=== PATIENT | male | born 1935 | race Caucasian/White ===

== ENCOUNTER 2018-11-09 09:19 | Inpatient (IN) ==
--- NOTE | 2018-10-14 08:35 | History & Physical Report ---
Date of Service October 14, 2018 Date of Surgery: 11-09-18 Assessment & Plan (1) Tricompartment osteoarthritis of right knee: Risks and benefits of procedure discussed in detail today, patient would like to proceed with a right total knee replacement at [facility] as scheduled. will obtain medical clearance prior to surgery as well as obtain PATs at [facility]. Will place on ASA 81mg po bid x 1 month post op, f/u 2 weeks post op for routine post-operative care and x-ray, sooner if having any problems. will make arrangements for HHPT at the time of discharge. At this point in time, has failed conservative measures and would like to proceed with surgical intervention. History of Present Illness Chief Complaint: right knee pain Primary Care Provider: Bonilla Bartlett Mr Argueta is an 83 year old male who complains of right knee pain, presents for pre-op evaluation prior to a right total knee replacement at [facility] by Dr Tao. April myrick presents with pain and stiffness on the right side. He states that the symptoms have been chronic non-traumatic and has gradually worsened over the past couple of years. The symptoms occur constantly. Currently the patient states that the symptoms are moderate and is described as aching and sharp. at this point, his pain is affecting his ADLs including walking, standing and using stairs, he has tried previous visco with minimal relief, has also had cortisone injection with mild relief. at this point has failed conservative measures and would like to proceed with right total knee replacement. Allergies Allergy/AdvReac Type Severity Reaction Status Date / Time CUT GRASS Allergy Unknown HEAD Uncoded 10/07/18 10:20 CONGESTION Home Medications Home Medications Medication Instructions Recorded Confirmed Type Allergy Relief 1 dose PO HS PRN 10/07/18 10/07/18 History acetaminophen [Arthritis Pain 650 mg PO UD PRN 10/07/18 10/07/18 History Reliever] amlodipine-olmesartan 1 tab PO DAILY 10/07/18 10/07/18 History amoxicillin 2,000 mg PO UD PRN 10/07/18 10/07/18 History atorvastatin 10 mg PO DAILY 10/07/18 10/07/18 History cholecalciferol (vitamin D3) 2,000 unit PO DAILY 10/07/18 10/07/18 History [Vitamin D3] docusate sodium [Stool Softener] 100 mg PO UD PRN 10/07/18 10/07/18 History melatonin 3 mg PO HS PRN 10/07/18 10/07/18 History pantoprazole 40 mg PO QAM 10/07/18 10/07/18 History tramadol 50 mg PO UD PRN 10/07/18 10/07/18 History Past Med/Surg History Medical History Acid reflux "ACID STOMACH" Hyperlipidemia Hypertension Surgical History History of bilateral cataract extraction History of cholecystectomy History of colonoscopy History of total right hip replacement Family History Unknown Hypertension Social History Preferred Language: Maori Communication Ability: Effective Product Design Specialist Required: No Beliefs That Will Affect Care: None Current Living Situation: Spouse Other Information That Helps Us Care for You: Yes (PREFERS IN HOME THERAPY) Feels Safe at Home: Yes Smoking Status: Never smoker Do You Dip or Chew Tobacco: No Hx Alcohol Use: Yes Review of Systems Review of Systems: All systems reviewed & are unremarkable except as noted in HPI & below Constitutional: no fever, no chills and no sweats Respiratory: no cough and no dyspnea Cardiovascular: no chest pain, no dyspnea and no orthopnea Gastrointestinal: no abdominal pain, no nausea and no vomiting Musculoskeletal: as per Subjective / HPI Physical Exam Physical Exam: Ht: 5ft 7in Wt: 81.65kg BP: 150/80 Pulse: 82 Constitutional: WD/WN, vitals as above no acute distress Respiratory: normal respiratory effort, lungs clear to auscultation no respiratory distress, no labored breathing and does not use accessory muscles Cardiovascular: RRR, no murmur, no edema Gastrointestinal (Abdomen): normal bowel sounds, soft, nontender, no hepatosplenomegaly Musculoskeletal: right knee- overall varus alignment, no atrophy, mild effusion, diffuse tenderness to the knee greatest over medial compartment, negative patellar apprehension , mild crepitation with motion, Patella position neutral, basim's negative, Juan's - medial positive, Posterior drawer- negative, anterior drawer negative, valgus stress negative, varus stress negative, no extensor lag, pain with active range of motion, less pain with passive painful ROM, Range of motion 0/3/110. No pain with active/passive ROM of ankle. Lower extremity strength normal. Lower extremity neuro-vascular is normal Results & Data Diagnostic Findings Right Knee X-ray dated September 2018 showing advanced degenerative changes to the right knee, with narrowing of the medial compartment and patello-femoral joint with patellar spurring noted, complete loss of medial clear space, there is osteophyte formation and subchondral sclerosis noted. overall varus alignment. no acute bony pathology noted.
--- NOTE | 2018-10-14 09:47 | PAT Medication Instructions ---
Medication Instructions Date of Service October 14, 2018 Home Medications Allergy Relief 1 dose PO HS NEEDED acetaminophen [Arthritis Pain Reliever] 650 mg PO NEEDED amlodipine-olmesartan 1 tab PO DAILY amoxicillin 2,000 mg PO UD NEEDED atorvastatin 10 mg PO DAILY cholecalciferol (vitamin D3) [Vitamin D3] 2,000 unit PO DAILY docusate sodium [Stool Softener] 100 mg PO NEEDED melatonin 3 mg PO HS NEEDED pantoprazole 40 mg PO QAM tramadol 50 mg PO NEEDED Continue as directed amoxicillin 2,000 mg PO UD NEEDED DO NOT take the morning of surgery amlodipine-olmesartan 1 tab PO DAILY cholecalciferol (vitamin D3) [Vitamin D3] 2,000 unit PO DAILY docusate sodium [Stool Softener] 100 mg PO NEEDED Take morning of surgery With a small sip of water, OTHERWISE NOTHING TO EAT OR DRINK AFTER MIDNIGHT: acetaminophen [Arthritis Pain Reliever] 650 mg PO NEEDED (if needed; stop 4 hours before surgery) atorvastatin 10 mg PO DAILY pantoprazole 40 mg PO QAM tramadol 50 mg PO NEEDED (if needed) Take evening before surgery Allergy Relief 1 dose PO HS NEEDED acetaminophen [Arthritis Pain Reliever] 650 mg PO NEEDED (if needed) docusate sodium [Stool Softener] 100 mg PO NEEDED (if needed) melatonin 3 mg PO HS NEEDED (if needed) tramadol 50 mg PO NEEDED (if needed) Other Notes If you have any questions please call us at [phone] or [phone] or [phone] or [phone]
--- NOTE | 2018-10-14 12:38 | Anesthesiology Consultation ---
Date of Service October 14, 2018 Assessment & Plan (1) Encounter for pre-operative examination: - No previous anesthesia records re: intubations. - Note sent to PCP re: abnormal CXR (10/14) - Was noted by PCP who ordered a chest CT and will refer to pulmonology. They still cleared for surgery and do not feel this will hold up surgery. Chart Review Chart Review: Acceptable Risk for Surgery and Patient seen in Pre Admission Testing Consults Requested medical (Dr. Bartlett (10/21)) Patient was seen by PCP on 10/21 and again on 11/01 for medical preop evaluation. Per patients note, "laboratory testing was done here to include an electrocardiogram which was normal. A CT scan of the lungs will be done this evening, but again I see no reason why his clearance should be held up for a CT scan of the lung nodule." Teaching & Discussion Pre-Anesthesia Teaching/Discussion Notes: Instructed NPO after midnight before surgery, except medications with 15 cc of water. Medication instructions provided according to the PAT guidelines. History Surgery Operation Date: 11/09/18 12:00 Proposed Procedures p Right Total Knee Arthroplasty - Lorne Tao DO Height/Weight Height: 5 ft 7 in Weight: 82.4 kg Allergies Allergy/AdvReac Type Severity Reaction Status Date / Time CUT GRASS Allergy Unknown HEAD Uncoded 10/07/18 10:20 CONGESTION Medications Home Medications Medication Instructions Recorded Confirmed Last Taken Allergy Relief 1 dose PO HS PRN 10/07/18 10/07/18 Unknown acetaminophen [Arthritis Pain 650 mg PO UD PRN 10/07/18 10/07/18 Unknown Reliever] amlodipine-olmesartan 1 tab PO DAILY 10/07/18 10/07/18 10/06/18 amoxicillin 2,000 mg PO UD PRN 10/07/18 10/07/18 Unknown atorvastatin 10 mg PO DAILY 10/07/18 10/07/18 10/06/18 cholecalciferol (vitamin D3) 2,000 unit PO DAILY 10/07/18 10/07/18 Unknown [Vitamin D3] docusate sodium [Stool Softener] 100 mg PO UD PRN 10/07/18 10/07/18 Unknown melatonin 3 mg PO HS PRN 10/07/18 10/07/18 Unknown pantoprazole 40 mg PO QAM 10/07/18 10/07/18 10/07/18 tramadol 50 mg PO UD PRN 10/07/18 10/07/18 Unknown Past Medical History Medical History Acid reflux Hyperlipidemia Hypertension Osteoarthritis Exercise / Class Metabolic Activity II 4-5 Yardwork/Stairs/Walk up hill (Mows grass, plays with dogs, golfs (using golf cart). Able to climb FOS. Denies CP or SOB. ) Past Family History Family History Unknown Hypertension Past Surgical History Surgical History History of bilateral cataract extraction History of cholecystectomy History of colonoscopy History of total right hip replacement Past Anesthesia History No Hx of Anesthesia Complications and No Family Hx of Anesthesia Complications History of PONV No Hx of PONV and No Hx of Motion Sickness Social History Smoking Status: Never smoker Do You Dip or Chew Tobacco: No Hx Alcohol Use: Yes alcohol intake frequency: holidays/special occasions only Hx Substance Use: No substance use type: does not use Review of Systems Patient denies chest pain, shortness of breath, dyspnea on exertion, cough, wheezing, palpitations. +Joint Pain (Knee) +Acid Reflux (controlled with current medications) Physical Exam Vital Signs BP: 161/79 P: 63 R: 18 T: 99.1 SPO2: 97% on RA ENMT Mouth: + dental restorations (Upper partial plate) and + poor dentition Thyromental Distance: < 3.5 Finger Breadths (3) Mallampati Class: II Neck normal visual inspection and trachea midline; neck extension not limited Respiratory normal respiratory effort Auscultation: lungs clear to auscultation bilaterally Cardiovascular Rate/Rhythm: regular rate and regular rhythm Heart Sounds: no murmur Vessels: no carotid bruit Neurologic moves all extremities Psychiatric Orientation: alert and oriented x 3 Testing Laboratory Results 10/14/18 13:08 10/14/18 13:08 10/14/18 10/14/18 10/14/18 13:08 13:08 13:08 PT 10.8 INR 1.1 APTT 27.8 Hemoglobin A1c 5.8 H Urine Color Urine Appearance Urine pH Ur Specific [place] Urine Protein Urine Glucose (UA) Urine Ketones Urine Nitrite Ur Leukocyte Esterase Blood Type O Positive Antibody Screen NEGATIVE 10/14/18 Unknown PT INR APTT Hemoglobin A1c Urine Color Yellow Urine Appearance Clear Urine pH 6.5 Ur Specific [place] 1.018 Urine Protein Negative Urine Glucose (UA) Negative Urine Ketones Negative Urine Nitrite Negative Ur Leukocyte Esterase Negative Blood Type Antibody Screen Electrocardiogram Date: 10/14/18 Findings: + NSR @ (63) and + no change from (11/30/08) Chest X-Ray Date: 10/14/18 FINDINGS: Subtle symmetric nodules within the lung bases consistent with nipple shadows. No pneumothorax. No pleural effusions. No focal lung consolidations to suggest pneumonia. No evidence for pulmonary edema. The heart is normal in size. No fractures within the visualized osseous structures. Possible 1 cm left retrocardiac nodule. IMPRESSION: 1. No acute process within the chest. 2. Possible 1 cm left retrocardiac nodule. Follow-up nonemergent chest CT is recommended for further evaluation. 3. This finding was called/faxed to the referring physician's office following dictation.
--- NOTE | 2018-10-14 13:49 | XRay Report ---
XR chest Pre-admission PA/Lat HISTORY: Preop. COMPARISON: Chest 11/30/2008. FINDINGS: Subtle symmetric nodules within the lung bases consistent with nipple shadows. No pneumotho rax. No pleural effusions. No focal lung consolidations to suggest pneumonia. No evidence for pulmona ry edema. The heart is normal in size. No fractures within the visualized osseous structures. Possibl e 1 cm left retrocardiac nodule. IMPRESSION: 1. No acute process within the chest. 2. Possible 1 cm left retrocardiac nodule. Follow-up nonemergent chest CT is recommended for further evaluation. 3. This finding was called/faxed to the referring physician's office following dictation. Electronically signed by: Jabier Gurrola M.D. 10/14/2018 1:48 PM
[2018-10-14 14:50] LABS: Basophils # (auto) 0.03 K/uL (0-0.2); Basophils % (auto) 0.5 %; Eosinophils % (auto) 1.8 %; Hematocrit (blood only) 39.6 % (42-52); Hemoglobin 13.7 g/dL (14.0-18.0); Immature Granulocytes # (auto) 0.01 K/uL (0.00-0.02); Immature Granulocytes % (auto) 0.2 %; Lymphocytes % (auto) 27.2 %; Mean Corpuscular Hgb Conc 34.6 g/dL (32-36); Mean Platelet Volume 9.5 fL (7.4-10.4); Monocytes # (auto) 0.42 K/uL (0.11-0.59); Monocytes % (auto) 7.6 %; Neutrophils # (auto) 3.45 K/uL (1.4-6.5); Neutrophils % (auto) 62.7 %; Platelet Count 195 K/uL (130-400); RDW Coefficient of Variation 13.1 % (11.5-14.5); RDW Standard Deviation 44.4 fL (36.4-46.3); Red Blood Count 4.26 M/uL (4.7-6.1); White Blood Count 5.51 K/uL (4.8-10.8)
[2018-10-14 14:52] LABS: Estimated Average Glucose 120 mg/dl; Hemoglobin A1C 5.8 % (4.5-5.6)
[2018-10-14 14:57] LABS: Albumin Level 4.2 gm/dl (3.4-5.0); BUN Creatinine Ratio 22.3 (10-20); Calcium 9.9 mg/dl (8.5-10.1); Creatinine Clr Calc Pharmacy 66.1 ml/min; Est GFR (African American) 92.5; Est GFR (Non-African American) 79.8; Potassium 4.2 mmol/L (3.5-5.1)
[2018-10-14 15:02] LABS: Appearance Urine Clear (Clear); Bilirubin Urine Negative (Negative); Blood Urine Negative (Negative); Color Urine Yellow; Glucose Urine UA Negative (Negative); Ketones Urine Negative (Negative); Leukocyte Esterase Urine Negative (Negative); Nitrite Urine Negative (Negative); Protein Urine Negative (Negative); Specific Gravity Urine 1.018 (1.000-1.030); Urobilinogen Urine Negative (Negative); pH Urine 6.5 (4.5-7.5)
[2018-10-14 15:04] LABS: INR 1.1 (0.9-1.1); Partial Thromboplastin Time 27.8 Seconds (21.0-31.0); Prothrombin Time 10.8 Seconds (9.0-12.0)
[~2018-11-09 09:19] MED LIST: ACETAMINOPHEN 500 MG TAB PO SCH; BUPIVACAINE 0.5 % 5 MG/1 ML PF 10ML VIAL ONE; CEFAZOLIN 1000MG 1,000 MG/7.5 ML SYR IV SCH; CEFAZOLIN 2000MG 2,000 MG/15 ML SYR IV SCH; CeleBREX 200 MG CAP PO SCH; FAMOTIDINE 20 MG TAB PO SCH; GABAPENTIN 300 MG CAP PO SCH; LIDOCAINE HCL 2% 2 ML VIAL/AMP(20MG/ML) INFIL ONE; LR 500ML BOLUS IV SCH; LR 500ML BOLUS, THEN 15ML/HR IV SCH; METOCLOPRAMIDE HCL 10 MG TABLET PO SCH; MIDAZOLAM HCL 1 MG/ML 2ML VIAL ONE; ONDANSETRON INJ 2 MG/ML 2 ML VIAL ONE; PROPOFOL IV EMULSION 10 MG/ML 20 ML VIAL IV ONE; ROPIVACAINE 0.5% 5 MG/ML 30 ML VIAL ONE; ROPIVACAINE 0.5% HCL/PF 150 MG, BUPIVACAINE 0.5% MPF 30 ML, EPINEPHrine 30MG/30ML (OR U... INSTIL SCH; TRANEXAMIC ACID 1,000 MG **IV Intra-op IV SCH; TRANEXAMIC ACID 1,000 MG **IV Pre-op IV SCH; dexAMETHasone 4 MG TAB PO SCH; fentaNYL citrate 100 MCG/2 ML VIAL ONE
--- NOTE | 2018-11-09 09:54 | History & Physical Bridge Note ---
Date of Service November 09, 2018 History & Physical Bridge Note I have examined the patient, reviewed the History & Physical and in the interval since the performance of the History & Physical I have noted the following changes of clinical significance: no changes noted
[2018-11-09] MEDS ORDERED: ORTHO JOINT ANESTHETIC ONE (10:21)
[2018-11-09] MEDS ORDERED: BACITRACIN INJ 50,000 UNIT VIAL ONE (10:21)
[2018-11-09] MEDS ORDERED: ONDANSETRON INJ 2 MG/ML 2 ML VIAL IV PRN ×2 (10:40→14:41)
[2018-11-09] MEDS ORDERED: ATROPINE SULFATE 0.1 MG/ML 10ML SYR IV PRN (10:40)
[2018-11-09] MEDS ORDERED: ePHEDrine sulfate 50 MG/ML AMP IV PRN (10:40)
[2018-11-09] MEDS ORDERED: MoRPHine SULFATE PF 1 MG/ML 10 ML AMP/VIAL ONE (11:16)
[2018-11-09] MEDS ORDERED: fentaNYL citrate 100 MCG/2 ML VIAL ONE ×2 (11:16→11:38)
[2018-11-09] MEDS ORDERED: PHENYLEPHRINE HCL 10 MG/ML VIAL ONE (12:02)
--- NOTE | 2018-11-09 12:05 | Operative Report ---
Post Operative Report Pre & Post Diagnosis Operation Date: 11/09/18 12:00 Pre-Op Diagnosis: Tricompartment osteoarthritis of right knee Post-Op Diagnosis: Tricompartment osteoarthritis of right knee Procedure Operation Date: 11/09/18 12:00 Actual Procedures p Right Total Knee Arthroplasty, Cemented(Right) utilizing Law [employer] Nep[employer] journey to non-block total knee arthroplasty size 6 femur 7 tibia 13 polyethylene 35 oval patella- Lorne Tao DO Surgeon Lorne Tao DO Warp Yarn Sorter Yadiel DASH Estimated Blood Loss 5 Findings Consistent with Post-Op Diagnosis Patient presents with severe end-stage tricompartmental degenerative joint disease varus alignment bone to bone both medial lateral and patellofemoral compartments with large osteophyte subchondral cystic changes eburnated bone no response to conservative management Specimens Bone cartilage Drains Medium bore Hemovac Complications none Disposition Accompanied Patient To Recovery: No Disposition: Recovery Room Indications Patient presents as an 83-year-old white male with severe end-stage tricompartmental degenerative joint disease of the right knee is been no response to conservative management including physical therapy anti- inflammatories relative rest activity modification corticosteroid injection Visco supplementation bracing patient presents for right total knee arthroplasty the above intraoperative findings were noted Description of Procedure After proper prepping and draping of the Right lower extremity anterior midline incision was made over the region of the extensor extensor mechanism after meticulous hemostasis was obtained and maintained in subcutaneous tissues a medial parapatellar incision was made The patella was subluxed lateralward the medial lateral gutter were cleaned from any hypertrophic synovitis and scar tissue of the distal femoral block was placed and the distal femoral osteotomy cut was made subsequently the chamfers anterior and posterior osteotomy cuts were made utilizing the 4-in-1 block the tibia was subsequently subluxed anteriorward medial and ateral meniscal remnants were excised in their entirety remnants of the anterior and posterior cruciate ligaments were excised in their entirety excellent exposure of the proximal tibia was obtained the tibial osteotomy guide was placed on the proximal tibial osteotomy cut was made once again the knee was irrigated with copious amounts of sterile saline solution the patella was subsequently everted lateralward thickened scar tissue around the patella was removed the patella was subsequently cut utilizing a freehand technique and was drilled prepared for final preparation and placement of patella socially flexion-extension gaps were checked and the equal and symmetric trials were placed to the appropriate femoral and tibial trials with poly-spacer being placed for equal flexion and extension gaps and full range of motion including extension to 0 and flexion to 140 the trial components after having been taken to recovery range of motion was subsequently removed meticulous hemostasis was obtained and maintained subsequently a knee block injection of joint cocktail including ropivacaine 0.5% 150 mg. Bupivacaine 0.5% epinephrine 1-200,030 mL's toradol 30 mg dexamethasone 4 mg ketamine 10 mg clonidine 100 micrograms normal saline solution 30 mg was infiltrated into the soft tissues of the posterior knee medial lateral gutters and periosteal synovium special attention was paid to protect neurovascular structures at all times subsequently trial components having been removed the knee was irrigated with sterile saline solution. debris was removed the proximal tibia was subsequently prepared and was made ready for the placement of the tibial component tibial component was also cemented and tamped into position the femoral component was subsequently placed and cemented in the position the patellar component was subsequently cemented in position because hemostasis once again obtained and maintained wound having been thoroughly irrigated with debridement and debridement lavage was performed as well as a medial parapatellar incision closed with #1 Vicryl in interrupted fashion subcutaneous was closed with #2 Vicryl skin was closed with skin clips. PA-C was necessary for prepping and drapping as well as wound closure of deep fascia Sub cutaneous tissue and skin and was necessary for the case. A sterile compressive dressing was placed patient was taken to recovery in stable condition of report dictated by Dinh I attest to the content of the Intraoperative Record and any orders documented therein. Any exceptions are noted below. I attest to the content of the Intraoperative Record and any orders documented therein. Any exceptions are noted below.
[2018-11-09] MEDS: fentaNYL citrate 100 MCG/2 ML VIAL IV PRN ×4 (13:20→13:35)
[2018-11-09] MEDS ORDERED: HYDROmorphone INJ 1 MG/ML SYRINGE ONE (13:37)
--- NOTE | 2018-11-09 13:39 | XRay Report ---
RIGHT KNEE 2 VIEWS History: Right total knee arthroplasty. Degenerative arthritis. Postop. FINDINGS: The patient is status post a right total knee arthroplasty. The hardware is intact. No frac ture or dislocation. Surgical drains are in place. IMPRESSION: Right total knee arthroplasty. No evidence for hardware complication. Electronically signed by: Jabier Gurrola M.D. 11/09/2018 1:38 PM
[2018-11-09] MEDS: HYDROmorphone INJ 1 MG/ML SYRINGE IV PRN ×7 (13:40→14:10)
[2018-11-09] MEDS ORDERED: METOCLOPRAMIDE HCL INJ 5 MG/ML 2 ML VIAL IV PRN (14:41)
[2018-11-09] MEDS ORDERED: BISACODYL 10 MG SUPP PR PRN (14:41)
[2018-11-09] MEDS ORDERED: NALOXONE HCL 0.4 MG/1 ML VIAL/CARP IV PRN (14:41)
[2018-11-09] MEDS ORDERED: MAGNESIUM HYDROXIDE SUSP 30 ML UDC PO PRN (14:41)
[2018-11-09] MEDS ORDERED: ALUMINUM/MAGNESIUM SUSP 30 ML UDC PO PRN (14:41)
--- NOTE | 2018-11-09 15:19 | Anesthesiology Progress Note ---
Date of Service November 09, 2018 Anesthesia Post Procedure Vital Signs Vital Signs: Temp Pulse Pulse Resp BP Pulse Ox 11/09/18 15:07 36.6 C 82 18 148/76 H 100 11/09/18 14:45 36.8 C 90 16 151/83 H 98 11/09/18 14:15 80 16 144/81 H 99 11/09/18 14:05 82 16 151/80 H 99 11/09/18 13:55 82 16 150/88 H 150 H 11/09/18 13:45 36.8 C 81 16 150/83 H 98 11/09/18 13:35 79 16 166/80 H 97 11/09/18 13:25 77 15 165/86 H 100 11/09/18 13:15 71 15 171/89 H 100 11/09/18 13:09 36.2 C L 70 16 163/86 H 100 11/09/18 10:08 36.5 C 79 20 167/96 H 95 Pain Intensity Right Ankle: Pain Intensity: 7 Transfer of Care Handoff Completed per policy Notes Mental Status: alert / awake / arousable and participated in evaluation Patient Amnestic to Procedure: Yes Nausea / Vomiting: adequately controlled Pain: adequately controlled and improving with treatment Airway Patency, RR, SpO2: stable & adequate BP & HR: stable & adequate Hydration State: stable & adequate Anesthetic Complications: no major complications apparent and Pt Satisfied with anesthetic care
[2018-11-09] MEDS: ACETAMINOPHEN 500 MG TAB PO SCH ×2 (17:20→23:57)
[2018-11-09] MEDS: KETOROLAC TROMETHAMINE 15 MG/ML VIAL IV SCH ×2 (17:42→21:52)
[2018-11-09] MEDS: FERROUS GLUCONATE 324 MG TAB PO SCH (17:43)
[2018-11-09] MEDS: CEFAZOLIN 2000MG 2,000 MG/15 ML SYR IV SCH (19:59)
[2018-11-09] MEDS: SODIUM CHLORIDE 0.9% 1000ML 1,000 ML IV SCH ×2 (20:01→23:58)
[2018-11-09] MEDS: OXYCODONE HCL IR 5 MG TAB (IMMEDIATE RELEASE) PO PRN (21:49)
[2018-11-09] MEDS: SENNA 8.6 MG TAB PO SCH (21:50)
[2018-11-09] MEDS: ASPIRIN 81 MG ECTAB PO SCH (21:50)
[2018-11-09] MEDS: DOCUSATE SODIUM 100 MG CAP PO SCH (21:51)
[2018-11-09] MEDS: HYDROmorphone INJ 0.5 MG/0.5 ML SYR IV PRN (23:58)
[2018-11-10] MEDS: KETOROLAC TROMETHAMINE 15 MG/ML VIAL IV SCH ×4 (02:04→20:51)
[2018-11-10] MEDS: CEFAZOLIN 2000MG 2,000 MG/15 ML SYR IV SCH (02:04)
[2018-11-10] MEDS: ACETAMINOPHEN 500 MG TAB PO SCH ×3 (05:22→22:25)
[2018-11-10 06:14] LABS: Hematocrit (blood only) 32.6 % (42-52); Hemoglobin 10.9 g/dL (14.0-18.0); Mean Corpuscular Hgb Conc 33.4 g/dL (32-36); Mean Corpuscular Volume 94.5 fL (80-100); Mean Platelet Volume 9.2 fL (7.4-10.4); Platelet Count 160 K/uL (130-400); RDW Coefficient of Variation 12.9 % (11.5-14.5); RDW Standard Deviation 44.6 fL (36.4-46.3); Red Blood Count 3.45 M/uL (4.7-6.1); White Blood Count 11.63 K/uL (4.8-10.8)
[2018-11-10 06:43] LABS: BUN Creatinine Ratio 26.4 (10-20); Calcium 8.1 mg/dl (8.5-10.1); Creatinine Clr Calc Pharmacy 53.4 ml/min; Est GFR (African American) 73.4; Est GFR (Non-African American) 63.3; Potassium 4.3 mmol/L (3.5-5.1)
[2018-11-10] MEDS: OXYCODONE HCL IR 5 MG TAB (IMMEDIATE RELEASE) PO PRN ×4 (07:49→20:52)
--- NOTE | 2018-11-10 08:00 | Anesthesiology Progress Note ---
Date of Service November 10, 2018 Anesthesia Post Procedure Vital Signs Vital Signs: Temp Pulse Pulse Resp BP Pulse Ox 11/10/18 06:54 36.8 C 68 18 135/70 96 11/10/18 03:09 36.6 C 66 16 116/65 95 11/09/18 23:13 36.9 C 68 18 126/68 95 11/09/18 17:48 36.6 C 83 18 124/73 95 11/09/18 16:43 36.8 C 84 17 121/66 94 11/09/18 15:40 36.7 C 85 17 165/76 H 98 11/09/18 15:07 36.6 C 82 18 148/76 H 100 11/09/18 14:45 36.8 C 90 16 151/83 H 98 11/09/18 14:15 80 16 144/81 H 99 11/09/18 14:05 82 16 151/80 H 99 11/09/18 13:55 82 16 150/88 H 150 H 11/09/18 13:45 36.8 C 81 16 150/83 H 98 11/09/18 13:35 79 16 166/80 H 97 11/09/18 13:25 77 15 165/86 H 100 11/09/18 13:15 71 15 171/89 H 100 11/09/18 13:09 36.2 C L 70 16 163/86 H 100 11/09/18 10:08 36.5 C 79 20 167/96 H 95 Pain Intensity Right Ankle: Pain Intensity: 5 Notes Mental Status: alert / awake / arousable and participated in evaluation Patient Amnestic to Procedure: Yes Nausea / Vomiting: adequately controlled Pain: adequately controlled Airway Patency, RR, SpO2: stable & adequate BP & HR: stable & adequate Hydration State: stable & adequate Neuraxial Anesthesia: was administered and sensory block resolved Anesthetic Complications: no major complications apparent and Pt Satisfied with anesthetic care
--- NOTE | 2018-11-10 08:31 | Orthopedic Progress Note ---
Date of Service November 10, 2018 Assessment & Plan (1) Tricompartment osteoarthritis of right knee: Postop day 1 status post right TKA. PT/OT protocols. Weightbearing as tolerated on the right lower extremity. DVT prophylaxis with aspirin twice daily, SCDs, LEOPOLDO bales. Continue current pain management. DC planning-patient is planning for home health services whenever he is discharged. Subjective Postop day 1 status post right total knee arthroplasty. Patient is currently sitting up in bed. He is awake and alert. No overt complaints at this time. Pain is controlled. He denies any shortness of breath, chest pain, lightheadedness. Physical Exam Physical Exam: Dressings are clean, dry, and intact. Calves are soft nontender. Neurovascular is intact. Toes are mobile. Hemovac drainage was 150 mL's from the previous shift. Results & Data Vital Signs (Past 12 Hours) Vital Signs Temp Pulse Resp BP Pulse Ox 11/10/18 06:54 36.8 C 68 18 135/70 96 11/10/18 03:09 36.6 C 66 16 116/65 95 11/09/18 23:13 36.9 C 68 18 126/68 95 Laboratory Results Laboratory Results WBC 11.63 K/uL (4.8-10.8) H 11/10/18 05:55 RBC 3.45 M/uL (4.7-6.1) L 11/10/18 05:55 Hgb 10.9 g/dL (14.0-18.0) L 11/10/18 05:55 Hct 32.6 % (42-52) L 11/10/18 05:55 MCV 94.5 fL (80-100) 11/10/18 05:55 MCH 31.6 pg (25-34) 11/10/18 05:55 MCHC 33.4 g/dL (32-36) 11/10/18 05:55 RDW Std Deviation 44.6 fL (36.4-46.3) 11/10/18 05:55 RDW Coeff of Nirmal 12.9 % (11.5-14.5) 11/10/18 05:55 Plt Count 160 K/uL (130-400) 11/10/18 05:55 MPV 9.2 fL (7.4-10.4) 11/10/18 05:55 Immature Gran % (Auto) 0.2 % 10/14/18 13:08 Neut % (Auto) 62.7 % 10/14/18 13:08 Lymph % (Auto) 27.2 % 10/14/18 13:08 [place] % (Auto) 7.6 % 10/14/18 13:08 Eos % (Auto) 1.8 % 10/14/18 13:08 Baso % (Auto) 0.5 % 10/14/18 13:08 Immature Gran # (Auto) 0.01 K/uL (0.00-0.02) 10/14/18 13:08 Neut # (Auto) 3.45 K/uL (1.4-6.5) 10/14/18 13:08 Lymph # (Auto) 1.50 K/uL (1.2-3.4) 10/14/18 13:08 Gibson # (Auto) 0.42 K/uL (0.11-0.59) 10/14/18 13:08 Eos # (Auto) 0.10 K/uL (0-0.5) 10/14/18 13:08 Baso # (Auto) 0.03 K/uL (0-0.2) 10/14/18 13:08 PT 10.8 Seconds (9.0-12.0) 10/14/18 13:08 INR 1.1 (0.9-1.1) 10/14/18 13:08 APTT 27.8 Seconds (21.0-31.0) 10/14/18 13:08 PTT Ratio 1.0 10/14/18 13:08 Sodium 138 mmol/L (136-145) 11/10/18 05:55 Potassium 4.3 mmol/L (3.5-5.1) 11/10/18 05:55 Chloride 106 mmol/L (98-107) 11/10/18 05:55 Carbon Dioxide 27 mmol/L (21-32) 11/10/18 05:55 Anion Gap 5.0 (3-11) 11/10/18 05:55 BUN 29 mg/dl (7-18) H 11/10/18 05:55 Creatinine 1.09 mg/dl (0.6-1.4) 11/10/18 05:55 Est Cr Clr Drug Dosing 53.4 ml/min 11/10/18 05:55 Est GFR ( Amer) 73.4 11/10/18 05:55 Est GFR (Non-Af Amer) 63.3 11/10/18 05:55 BUN/Creatinine Ratio 26.4 (10-20) H 11/10/18 05:55 Glucose 121 mg/dl (70-99) H 11/10/18 05:55 Estimat Average Glucose 120 mg/dl 10/14/18 13:08 Hemoglobin A1c 5.8 % (4.5-5.6) H 10/14/18 13:08 Calcium 8.1 mg/dl (8.5-10.1) L 11/10/18 05:55 Albumin 4.2 gm/dl (3.4-5.0) 10/14/18 13:08 Urine Color Yellow 10/14/18 Unknown Urine Appearance Clear (Clear) 10/14/18 Unknown Urine pH 6.5 (4.5-7.5) 10/14/18 Unknown Ur Specific [place] 1.018 (1.000-1.030) 10/14/18 Unknown Urine Protein Negative (Negative) 10/14/18 Unknown Urine Glucose (UA) Negative (Negative) 10/14/18 Unknown Urine Ketones Negative (Negative) 10/14/18 Unknown Urine Blood Negative (Negative) 10/14/18 Unknown Urine Nitrite Negative (Negative) 10/14/18 Unknown Urine Bilirubin Negative (Negative) 10/14/18 Unknown Urine Urobilinogen Negative (Negative) 10/14/18 Unknown Ur Leukocyte Esterase Negative (Negative) 10/14/18 Unknown Blood Type O Positive 10/14/18 13:08 Antibody Screen NEGATIVE 10/14/18 13:08
[2018-11-10] MEDS: FERROUS GLUCONATE 324 MG TAB PO SCH ×2 (08:35→16:26)
[2018-11-10] MEDS: ATORVASTATIN 10 MG TAB PO SCH (08:35)
[2018-11-10] MEDS: MULTIVITAMIN TAB PO SCH (08:35)
[2018-11-10] MEDS: ASPIRIN 81 MG ECTAB PO SCH ×2 (08:35→20:51)
[2018-11-10] MEDS: DOCUSATE SODIUM 100 MG CAP PO SCH ×2 (08:35→20:51)
[2018-11-10] MEDS: CHOLECALCIFEROL 1,000 UNITS TAB PO SCH (08:36)
[2018-11-10] MEDS: OLMESARTAN MEDOXOMIL 20 MG TAB PO SCH (08:37)
[2018-11-10] MEDS: PANTOprazole 40 MG TAB PO SCH (08:37)
[2018-11-10] MEDS ORDERED: AMLODIPINE BESYLATE 5 MG TAB PO SCH (09:00)
[2018-11-10] MEDS: AMLODIPINE BESYLATE 5 MG TAB PO SCH (10:06)
[2018-11-10] MEDS: SENNA 8.6 MG TAB PO SCH (20:51)
[2018-11-10] MEDS: HYDROmorphone INJ 0.5 MG/0.5 ML SYR IV PRN (23:29)
[2018-11-11] MEDS: KETOROLAC TROMETHAMINE 15 MG/ML VIAL IV SCH ×2 (02:03→08:41)
[2018-11-11] MEDS: OXYCODONE HCL IR 5 MG TAB (IMMEDIATE RELEASE) PO PRN ×3 (02:03→13:07)
[2018-11-11] MEDS: ACETAMINOPHEN 500 MG TAB PO SCH ×2 (05:28→13:07)
--- NOTE | 2018-11-11 06:58 | Orthopedic Progress Note ---
Date of Service November 11, 2018 Assessment & Plan (1) Tricompartment osteoarthritis of right knee: Postop day 2 status post right TKA. PT/OT protocols. Weightbearing as tolerated on the right lower extremity. DVT prophylaxis with aspirin twice daily, LEOPOLDO Caban. Continue current pain management. DC planning-patient is planning for home health services after discharge after PT today Subjective Postop day 2 status post right total knee arthroplasty. denies CP/SOB denies Fever/Chills Physical Exam Physical Exam: Vital Signs Temp Pulse Resp BP Pulse Ox 11/10/18 23:14 37.1 C 78 18 169/77 H 96 11/10/18 15:12 36.8 C 69 17 166/67 H 99 11/10/18 10:59 36.6 C 66 18 143/63 H 96 Intake and Output 11/10/18 11/10/18 11/11/18 14:59 22:59 06:59 Intake Total 575 / 1095 400 / 1095 120 / 1095 Output Total 125 / 400 150 / 400 125 / 400 Balance 450 / 695 250 / 695 -5 / 695 Intake: Oral 575 / 1095 400 / 1095 120 / 1095 Output: Drain Output 125 / 400 150 / 400 125 / 400 Right Knee Hem ovac 125 / 400 150 / 400 125 / 400 Other: # Unmeasured Voi ds 1 Musculoskeletal: right knee: NVDI, calf SNT, negative mary sign. DP palpable, able to wiggle toes/ankle movement without difficulty. prinea clean dry and intact. expected post-operative bruising noted. Results & Data Vital Signs (Past 12 Hours) Vital Signs Temp Pulse Resp BP Pulse Ox 11/10/18 23:14 37.1 C 78 18 169/77 H 96
[2018-11-11] MEDS: OLMESARTAN MEDOXOMIL 20 MG TAB PO SCH (08:36)
[2018-11-11] MEDS: CHOLECALCIFEROL 1,000 UNITS TAB PO SCH (08:36)
[2018-11-11] MEDS: AMLODIPINE BESYLATE 5 MG TAB PO SCH (08:36)
[2018-11-11] MEDS: ATORVASTATIN 10 MG TAB PO SCH (08:36)
[2018-11-11] MEDS: PANTOprazole 40 MG TAB PO SCH (08:38)
[2018-11-11] MEDS: ASPIRIN 81 MG ECTAB PO SCH (08:38)
[2018-11-11] MEDS: MULTIVITAMIN TAB PO SCH (08:38)
[2018-11-11] MEDS: FERROUS GLUCONATE 324 MG TAB PO SCH (08:39)
[2018-11-11] MEDS: DOCUSATE SODIUM 100 MG CAP PO SCH (08:40)
--- NOTE | 2018-11-12 15:12 | Discharge Summary ---
DISCHARGE DIAGNOSIS: Degenerative joint disease, right knee. SECONDARY DIAGNOSES: Gastroesophageal reflux disease, hyperlipidemia, hypertension. CONSULTS: None. COMPLICATIONS: None. PROCEDURES: Right total knee arthroplasty performed by Dr. Tao on a 11/09/2018. BRIEF HISTORY: As dictated in the history and physical. HOSPITAL SUMMARY: The patient was admitted on the above-noted date and had the above-noted surgery performed which he tolerated well. On the first postoperative day, he was currently sitting up in bed. He was awake and alert. He had no overt complaints at that time. Pain was controlled and denied shortness of breath, chest pain or lightheadedness. Dressings were clean, dry and intact. Calves were soft, nontender. Neurovascular was intact. Toes were mobile. Hemovac drainage was 150 mL from the previous shift. Vital signs were stable. He was afebrile. Hemoglobin was 10.9. The patient was started on PT and OT protocols, weightbearing as tolerated and continued on DVT prophylaxis and pain management. Plans were for home health services upon discharge. By his second postoperative day, he remained stable. He was progressing with his physical therapy. He had no complaints. Vital signs remained stable. He was afebrile. Prineo was clean, dry and intact of the wound. Neurovascular was intact. Toes were mobile. Calves were soft, nontender and the patient was discharged to home on 11/11/2018. For further review, please see chart. LABORATORY AND X-RAY DATA: As per chart. DISCHARGE INSTRUCTIONS: The patient was discharged to home in satisfactory condition on 11/11/2018. Diet: Regular. Activity: Weightbearing as tolerated with walker of the right lower extremity. Follow [facility] instruction sheets and special care instructions as noted. Follow up with Dr. Tao in 2 weeks. The patient is to call for appointment if one has not been made for you. DISCHARGE MEDICATIONS: Acetaminophen 1000 mg p.o. q. 8 hours, aspirin 81 mg p.o. b.i.d., cefadroxil 500 mg p.o. b.i.d., Colace 100 mg p.o. b.i.d., oxycodone 5-10 mg p.o. q. 4 hours p.r.n. and OxyContin 10 mg p.o. b.i.d.
== END 2018-11-11 13:48 | disposition home health service (06) | DRG 470 ==
LOC: ASU 09:19 → 3E 13:07